=== PATIENT | male | born 1950 | race Caucasian/White ===

== ENCOUNTER 2016-11-03 13:17 | Inpatient (IN) | payer OTHER ==
--- NOTE | 2016-11-03 14:44 | Diag Imaging Result Document ---
PROCEDURE NAME: XRAY PELVIS W/HIP 2-3VW LT - 11/03/2016 PELVIS AND 2 VIEWS OF THE LEFT HIP: COMPARISON: None. FINDINGS: There is no fracture or dislocation. There is probably mild bilateral hip osteoarthritis. There is massive constipation, with distention of the cecum. There is peripheral vascular disease of the arteries of the thighs and pelvis. IMPRESSION: 1. No fracture. 2. Incidental findings described above.
--- NOTE | 2016-11-03 14:48 | Diag Imaging Result Document ---
PROCEDURE NAME: RIBS UNILAT W/PA CHEST RIGHT - 11/03/2016 FRONTAL CHEST X-RAY AND 3 VIEWS OF THE RIGHT-SIDED RIBS: COMPARISON: 09/25/2016. FINDINGS: Stable CABG changes. Stable calcified granulomas on the right. The lungs are clear of infiltrate. The right-sided ribs are intact. IMPRESSION: No acute disease.
--- NOTE | 2016-11-03 16:44 | ED EKG INTERP ---
EKG Interpretation - EKG Time of EKG reading by physician:: 16:30 EKG Read and Signed by:: Silvano Rae EKG Interpretation (*Must complete 3 of following elements*): Abnormal ( nonspecific ST and T wave Abnormality) Rate: 71 Rhythm: Normal Sinus Rhythm Comments: Abnormal ECG Physician Attestation
--- NOTE | 2016-11-03 16:57 | EKG Report ---
Test Performed on : 11/03/2016 4:30:50 PM Test Reason : Chest Pain Blood Pressure : / mmHG Vent. Rate : 071 BPM Atrial Rate : 071 BPM P-R Int : 184 ms QRS Dur : 102 ms QT Int : 414 ms P-R-T Axes : 096 083 033 degrees QTc Int : 449 ms Normal sinus rhythm. Nonspecific ST and T wave abnormality Abnormal ECG When compared with ECG of 26-SEP-2016 09:10, No significant change was found Unconfirmed Result
[2016-11-03] MEDS ORDERED: NS 1,000 ML ONE (17:09)
--- NOTE | 2016-11-03 17:13 | PROVIDER DOCUMENTATION ---
HPI-Musculoskeletal Pain/Inj - GENERAL Source: patient - HX OF PRESENT ILLNESS-MUSKULOSKELTAL Quality of Pain: reports: aching Severity in ED: mild Onset/Duration: last night Timing: still present, intermittent Modifying Factors: improves with: nothing Any recent injury?: Yes (fall ) Locality of Occurance: Home Similar Symptoms Previously?: No Recently seen or treated by another doctor?: No - FALL INJURY Location of Pain/Injury: reports: other (R side ribs) Reason for Fall: reports: tripped Symptoms prior to fall:: reports: none Loss of Consciousness: no loss of consciousness Injury Associated Symptoms: reports: pain with inspiration. denies: arm pain, back/neck pain, chest pain, diaphoresis, dizziness, headaches, joint pain, muscle aches, nausea, puncture wound, shortness of breath, sensory/motor loss, snap/crack/pop sensation, unable to bear weight, vomiting, weakness, trouble walking - TRUNK INJURY Location of Injury(s)/Pain: reports: ribs (R) Context / Method of Injury: reports: fall Associated Symptoms: reports: pain with breathing. denies: anxiety, arm pain, back/neck pain, chest pain, nausea/vomiting, shortness of breath, sensory/motor loss <Mariela Mar - Last Filed: 11/03/16 17:52> <Robinson Malone - Last Filed: 11/03/16 22:32> - GENERAL Chief Complaint: Fall Stated Complaint: SYNCOPE/RIB PAIN Time Seen by Provider: 11/03/16 17:05 - HX OF PRESENT ILLNESS-MUSKULOSKELTAL Nature of Presenting Problem: Pt is 66 y/o M presents to the ED with R rib pain. Pt states tripped and fell last night. Pt denies LOC. (Mariela Mar) Review of Systems - Adult - REVIEW OF SYSTEMS - ADULT Constitutional: denies: chills, fever Eyes: denies: blurred vision, double vision Ears, Nose, Mouth & Throat: denies: ear pain, nose pain, throat pain Cardiovascular: denies: chest pain, heart murmur, irregular heart rate Respiratory: denies: cough, shortness of breath, wheezing Gastrointestinal: denies: abdominal pain, diarrhea, nausea, vomiting Genitourinary: denies: dysuria, hematuria Musculoskeletal: reports: other (R side rib pain). denies: bone pain, joint pain, neck pain Integumentary: reports: no symptoms reported Neurological: reports: no symptoms reported Psychiatric: reports: no symptoms reported Endocrine: reports: no symptoms reported Hematologic/Lymphatic: reports: no symptoms reported Allergic/Immunologic: reports: no symptoms reported All Other Systems: Reviewed and Negative <Mariela Mar - Last Filed: 11/03/16 17:52> Past History - Adult - PAST MEDICAL HISTORY-ADULT Review of Records: reports: Nursing Assessment Review, Medications Reviewed, Social history reviewed & non-contributory. Major Childhood Illnesses: reports: denies history Cardiovascular: reports: cardiac disease, A-Fib, CAD, CHF, HTN, hyperlipidemia, other (stent) Respiratory: reports: COPD Gastrointestinal: reports: denies history Obstetrical/Gynecological: reports: denies history Genitourinary: reports: denies history Musculoskeletal: reports: denies history Neurological: reports: Parkinson's Endocrine/Immune: reports: Diabetes Other Conditions: reports: denies history - PRIOR SURGERIES/PROCEDURES Surgical/Procedure History: reports: CABG, cardiac stent - IMMUNIZATION STATUS Childhood Immunizations: See Nurse Assessment Flu Vaccine: See Nurse Assessment - FAMILY HISTORY Family History: reviewed, not pertinent - SOCIAL HISTORY Smoking: quit less than 1 year, cigarettes Substance Use: alcohol Alcohol Use Frequency: occasionally Number of drinks per typical drinking period:: 2 drinks Living Situation: family <Mariela Mar - Last Filed: 11/03/16 17:52> Physical Exam-Injury Related - Physical Exam-Injury Related Initial Vital Signs Reviewed: Yes General Appearance: appears well, alert, mild distress Eyes: PERRL/EOMI, pink conjunctivae, fundi clear, no AV nicking Head, Ears, Nose, Mouth & Throat: normocephalic/atraumatic, moist mucous membranes, normal ENT inspection, TMs normal, pharynx normal Neck: non-tender, full range of motion, supple, normal inspection Respiratory: chest non-tender, lungs clear, normal breath sounds, no pleuratic chest pain, no respiratory distress, no accessory muscle use Cardiovascular: normal peripheral pulses, regular rate, rhythm, no edema, no gallop, no JVD, no murmur Abdominal Exam: normal bowel sounds, non tender, soft, no organomegaly, no pulsatile mass Lymphatic: no adenopathy Back Exam: normal inspection, no CVA tenderness, no vertebral tenderness Extremity: normal range of motion, non-tender, normal gait, normal inspection Integumentary: normal color, warm/dry Neurologic: grossly normal Psych/Mental Status: normal mood/affect, oriented x 3 <Italia Maromi - Last Filed: 11/03/16 17:52> Progress - XRAY 1 XRAY: Bilateral XRAY Study: Chest, Ribs Impression: Normal XRAY Interpretation: no acute disease 2 XRAY: Left XRAY Study: Pelvis, Hip Impression: Normal XRAY Interpretation: no fracture <Saturnino Mari - Last Filed: 11/03/16 17:52> - EKG 1 Time of EKG reading by physician:: 19:43 EKG Read and Signed by:: Donaldo Juares Rate: 70 Mcgrath: right QRS: normal AL Interval: normal ST Wave: normal - CT/MRI 1 CT Study: Head Impression: Normal CT Results: NAP - CONSULTS/PCP/HOSPITALIST Notification #1 *Consult/PCP/Hospitalist*: Time Discussed: 20:29 Consult Disposition: Admit <Robinson Malone - Last Filed: 11/03/16 22:32> - PLAN OF CARE/RESULTS Progress/Plan/Lab Results: Orders Category Date Time Status Cardiac Monitoring DIRECTED Care 11/03/16 16:25 Active RIBS UNILAT W/PA CHEST RIGHT [RAD] Stat Exams 11/03/16 14:00 Completed XRAY PELVIS W/HIP 2-3VW LT [RAD] Stat Exams 11/03/16 14:01 Completed CBC WITH ELECTRONIC DIFF [HEME] Stat Lab 11/03/16 16:48 Results CK PROFILE [SP CHEM] Stat Lab 11/03/16 16:48 Received COMPREHENSIVE METABOLIC PANEL [CHEM] Stat Lab 11/03/16 16:48 Received MAGNESIUM [CHEM] Stat Lab 11/03/16 16:48 Received PRO B-NATRIURETIC PEPTIDE Stat Lab 11/03/16 16:[address] Re[address]IME WITH INR PL [COAG] Stat Lab 11/03/16 16:[address] [COAG] Stat Lab 11/03/16 16:48 Received TROPONIN T Stat Lab 11/03/16 16:48 Received 0.9% Sodium Chloride Inj [Ns] 1,000 ml Med 11/03/16 17:09 Discontinued .ROUTE As Directed EKG [EKG] Stat Ther 11/03/16 16:25 Draft Vital Signs - 24 hr 11/03/16 11/03/16 11/03/16 13:54 15:55 16:40 Temperature 98.2 F 98.6 F Pulse Rate 98 H 73 Pulse Rate [ 72 Sitting] Pulse Rate [ 75 Standing] Pulse Rate [ 70 Supine] Respiratory 18 16 Rate Blood Pressure 129/53 106/57 Blood Pressure 127/73 [Sitting] Blood Pressure 94/45 [Standing] Blood Pressure 149/71 [Supine] O2 Sat by Pulse 97 94 L Oximetry Laboratory Tests 11/03/16 11/03/16 11/03/16 16:48 16:48 16:48 WBC 8.54 RBC 4.09 L Hgb 9.8 L Hct 33.0 L MCV 80.7 L MCH 24.0 L MCHC 29.7 L RDW Std Deviation 17.6 H Plt Count 134 MPV 13.0 H Immature Gran % (Auto) 0.1 Neut % (Auto) 69.6 Lymph % (Auto) 15.2 L Emanuel % (Auto) 9.0 Eos % (Auto) 5.4 Baso % (Auto) 0.7 Immature Gran # (Auto) 0.01 Neut # (Auto) 5.94 Lymph # (Auto) 1.30 Emanuel # (Auto) 0.77 H Eos # (Auto) 0.46 Baso # (Auto) 0.06 PT INR APTT (Factor Assay) Sodium 135 L Potassium 4.1 Chloride 101 Carbon Dioxide 22 L Anion Gap 12 BUN 19 Creatinine 1.6 H Estimated GFR/1.73 m2 44 BUN/Creatinine Ratio 12 Glucose 105 H Calculated Osmolality 273 Calcium 9.2 Magnesium 1.7 Total Bilirubin 0.30 AST 18 ALT 6 L Alkaline Phosphatase 71 Creatine Kinase 212 H Troponin T Kxk-C-Ksmgboliojy Pept 687 H Total Protein 7.1 Albumin 4.1 Globulin 3.0 Albumin/Globulin Ratio 1.0 11/03/16 11/03/16 16:48 16:48 WBC RBC Hgb Hct MCV MCH MCHC RDW Std Deviation Plt Count MPV Immature Gran % (Auto) Neut % (Auto) Lymph % (Auto) Emanuel % (Auto) Eos % (Auto) Baso % (Auto) Immature Gran # (Auto) Neut # (Auto) Lymph # (Auto) Emanuel # (Auto) Eos # (Auto) Baso # (Auto) PT 14.7 INR 1.12 APTT (Factor Assay) 33.5 Sodium Potassium Chloride Carbon Dioxide Anion Gap BUN Creatinine Estimated GFR/1.73 m2 BUN/Creatinine Ratio Glucose Calculated Osmolality Calcium Magnesium Total Bilirubin AST ALT Alkaline Phosphatase Creatine Kinase Troponin T < 0.010 Gxa-A-Nghllhnkfgl Pept Total Protein Albumin Globulin Albumin/Globulin Ratio (Mariela Mar) Departure <Mariela Mar - Last Filed: 11/03/16 17:52> - Departure Time of Disposition Order: 22:32 Certified Medical Emergency: Emergent <Robinson Malone - Last Filed: 11/03/16 22:32> - Departure DIAGNOSIS: Syncope and collapse Disposition: ADMITTED INPATIENT 09 Condition: Good Referrals: Evelio Sharma MD [Primary Care Provider] - Attestation - Scribe Verification/Attestation Scribe:: Mariela Mar Acting as Scribe for:: Silvano Rae Scribe documention review:: This chart was documented by a scribe and accurately reflects the service the provider performed and the decisions made by the provider. - Scribe Verification/Attestation #2 Shift Change Time: 17:52 Scribe Name: Robinson Malone Acting as Scribe for:: Donaldo Juares <Mariela Mar - Last Filed: 11/03/16 17:52> - Scribe Verification/Attestation Scribe:: Robinson Malone Acting as Scribe for:: Donaldo Juares Scribe documention review:: This chart was documented by a scribe and accurately reflects the service the provider performed and the decisions made by the provider. <Robinson Malone - Last Filed: 11/03/16 22:32> Physician Attestation
[2016-11-03 17:15] LABS: INR 1.12 (0.86-1.15); PROTIME 14.7 Seconds (12.1-15.5); PTT PL 33.5 Seconds (22.6-43.9)
[2016-11-03 17:18] LABS: BASO% 0.7 % (0.0-0.8); EOS# 0.46 X1000 (0.0-0.7); EOS% 5.4 % (0.0-10.0); HEMOGLOBIN 9.8 g/dL (14.0-18.0); IMM GRAN# 0.01 X1000 (0.0-0.04); IMM GRAN% 0.1 % (0.0-0.5); LYMPH% 15.2 % (20.5-51.1); MANUAL DIFF NEEDED? NO; MCHC 29.7 g/dL (33-37); MCV 80.7 FL (81-99); MONO# 0.77 X1000 (0.11-0.59); NEUT% 69.6 % (42.2-75.2); PLT 134 X1000 (130-400); RBC 4.09 XMIL (4.7-6.1)
[2016-11-03 17:42] LABS: ALBUMIN 4.1 g/dL (3.5-5.0); CALCIUM 9.2 mg/dL (8.8-10.2); MAGNESIUM 1.7 mg/dL (1.5-2.7); POTASSIUM 4.1 mmol/L (3.5-5.1); TOTAL BILIRUBIN 0.3 mg/dL (0.20-1.00); TOTAL PROTEIN 7.1 g/dL (6.3-8.3)
[2016-11-03 18:08] LABS: CK-MB 4.26 ng/mL (0.0-5.0)
--- NOTE | 2016-11-03 19:53 | EKG Report ---
Test Performed on : 11/03/2016 7:32:16 PM Test Reason : ekg #2 Blood Pressure : / mmHG Vent. Rate : 070 BPM Atrial Rate : 070 BPM P-R Int : 168 ms QRS Dur : 094 ms QT Int : 442 ms P-R-T Axes : 000 090 104 degrees QTc Int : 477 ms Normal sinus rhythm. Rightward axis Nonspecific ST and T wave abnormality Abnormal ECG When compared with ECG of 03-NOV-2016 16:30, (Unconfirmed) No significant change was found Unconfirmed Result
--- NOTE | 2016-11-03 21:47 | Diag Imaging Result Document ---
PROCEDURE NAME: HEAD/C-SPINE W/O CONTRAST - 11/03/2016 CT HEAD AND C-SPINE WITHOUT CONTRAST: COMPARISON: CT head dated 09/27/2016. FINDINGS: HEAD: There is no discrete intracranial mass, mass effect, or intracranial hemorrhage. There is no evidence of acute infarct given the limited sensitivity of CT versus MRI. Surrounding soft tissues are grossly unremarkable. Calvaria is intact. C-SPINE: There is degenerative disk disease at multiple cervical levels. 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 This is causing fairly severe central spinal stenosis at these levels. There is somewhat milder central stenosis and foraminal stenosis at multiple other levels. This appears chronic. There is no discrete fracture, traumatic subluxation, or intrinsic osseous lesion, otherwise. There are emphysematous changes at the lung apices and right apical scarring. Surrounding soft tissues are essentially unremarkable, otherwise. IMPRESSION: 1. No evidence of acute intracranial pathology. 2. Multilevel degenerative disk disease as well as ossification of the posterior longitudinal ligament at C4 and C5 that is causing fairly severe central stenosis. No evidence of fracture or other definite acute osseous abnormality, however.
[2016-11-03] MEDS ORDERED: ZOFRAN IV PRN (22:29)
[2016-11-03] MEDS ORDERED: MORPHINE IV PRN (22:36)
[2016-11-04] MEDS ORDERED: NS 1,000 ML IV SCH (11:00)
[2016-11-04] MEDS ORDERED: DUONEB (A & A) INH PRN (11:46)
[2016-11-04] MEDS ORDERED: COLACE PO SCH (12:00)
[2016-11-04] MEDS ORDERED: PROSCAR PO SCH (12:00)
[2016-11-04] MEDS ORDERED: ASPIRIN PO SCH (12:00)
[2016-11-04] MEDS ORDERED: CYMBALTA PO SCH (12:00)
[2016-11-04] MEDS ORDERED: SPIRIVA INH SCH (12:00)
[2016-11-04] MEDS ORDERED: EXELON 4.6MG/24HRS TD SCH (12:00)
[2016-11-04] MEDS ORDERED: CORDARONE PO SCH (12:00)
[2016-11-04] MEDS ORDERED: FOLIC ACID PO SCH (12:00)
[2016-11-04] MEDS ORDERED: ZYLOPRIM PO SCH (12:00)
--- NOTE | 2016-11-04 15:39 | HISTORY AND PHYSICAL ---
PRIMARY CARE PHYSICIAN: Dr. Evelio Sharma CHIEF COMPLAINT: "I fell and my right side hurts. HISTORY OF PRESENTING ILLNESS: This is a 66-year-old male who presented to [facility] ER with complaints of right rib pain stating that he had tripped and fallen on the night before. States that he hit his right side and that he lost consciousness "out of it for about a minute" then the pain progressively worsened so he presented to the ER. Workup in the ER was essentially negative. His cardiac enzymes x3 sets have been negative. Rib with chest x-ray showed no acute disease. The right-sided ribs were intact. Hip and pelvic, x-ray of the left hip showed no fracture. Head CT showed no evidence of an acute intracranial pathology. CT of the spine showed no evidence of fracture. So, he was admitted for further evaluation and treatment. PAST MEDICAL HISTORY: Hypertension, diabetes, atrial fibrillation, coronary artery disease, CHF, hyperlipidemia, COPD, and Parkinson disease. PAST SURGICAL HISTORY: CABG and cardiac stent placement. FAMILY HISTORY: States his mother and father from heart problems. SOCIAL HISTORY: He currently is living with his girl friend. Denies any tobacco or illicit drug use and states he drinks 1-2 beers every 2-3 months. ALLERGIES: Oseltamivir phosphate. HOME MEDICATIONS: DuoNeb q.6 hours p.r.n., allopurinol 100 mg p.o. daily, amiodarone 100 mg p.o. daily, aspirin 325 mg p.o. daily. Cyanocobalamin 1000 mcg IM q.30 days will be held. Depakote ER 500 mg p.o. at bedtime, Colace 100 mg p.o. b.i.d. Cymbalta 30 mg p.o. q.a.m., vitamin D 250 1000 units p.o. q.7 days, will be held. Proscar 5 mg p.o. daily, folic acid 2 mg p.o. daily, lisinopril 20 mg p.o. daily will be held, melatonin 5 mg p.o. at bedtime, metformin 500 mg p.o. b.i.d. will be held, Seroquel 100 mg p.o. at bedtime. Exelon patch 4.6 mg transdermally daily, Zocor 40 mg p.o. at bedtime and Spiriva 2 puffs inhalation daily. LABORATORY DATA: White blood cell count of 8.54, hemoglobin of 9.8, hematocrit 33.0, platelets 134,000. PT and INR 14.7 and 1.12. Sodium of 135, potassium 4.1, chloride 101, CO2 22, BUN of 19, creatinine 1.6. Glucose 105. Magnesium 1.7. Creatine kinase of 212 with a CK-MB of 4.26. Troponins x3 sets have been negative. ProBNP of 687. IMAGING STUDIES: Ribs with a chest x-ray shows no acute disease. All right-sided ribs are intact. Hip/pelvis x-ray showed no fracture. Incidental findings described above with no fracture or dislocation and some mild bilateral hip osteoarthritis. There is noted in the hip and pelvic x-ray, there is massive constipation with distention of the cecum. Head CT showed no evidence of an acute intracranial pathology. CT of the C-spine shows multilevel degenerative disk disease. No evidence of fracture or definite acute osseous abnormality. EKG showed normal sinus rhythm at 71. REVIEW OF SYSTEMS: He denied any fever, chills, blurred vision, dizziness, chest pain, coughing, or shortness of breath. He denies any nausea, vomiting, or diarrhea. Positive for constipation. Denies any burning or hurting with urination. PHYSICAL EXAMINATION: VITAL SIGNS: On arrival, showed a temperature of 98.2 degrees, pulse 98, respirations 18, blood pressure 129/53, saturating 97% on room air. This a.m., we checked orthostatic blood pressures that showed a lying of 155/61 with a heart rate of 70, sitting 112/72 with a heart rate of 73. Standing blood pressure 103/50 with a heart rate of 77. GENERAL: This is a 66-year-old male who is lying in the bed, and answers questions appropriately. HEENT: Normocephalic and atraumatic. Pupils are equal, round, reactive to light. Extraocular movements are intact. Oropharynx and nares are clear. NECK: Supple. LUNGS: Diminished throughout, some splinting noted to the right side with movement. Equal lung expansion and chest wall movement is noted. HEART: Regular rate and rhythm. No murmurs, rubs, or gallops. ABDOMEN: Soft, nontender, nondistended. Bowel sounds are hypoactive x4. NEUROLOGICAL: The cranial nerves 2-12 are grossly intact. ASSESSMENT: 1. Syncopal episode. 2. Orthostatic hypotension. 3. Diabetes type 2. 4. Atrial fibrillation, history of. PLAN: He has been admitted. Neuro checks q.4 hours for 24 hours. Placed on telemetry. We will check a carotid ultrasound and an echocardiogram today. We will place him on normal saline at 125 mL an hour. Continue his home medications as previously identified. He has morphine 2 mg IV q.4 hours p.r.n. for pain and Zofran 4 mg IV q.4 hours p.r.n. nausea vomiting. We will recheck orthostatics after infusion of at least 1 L of his normal saline at 125 mL an hour. Dictated by LILLI Yeh for Artemio Cedillo MD
[2016-11-04 15:49] VITALS: BP 187/89
[2016-11-04] MEDS ORDERED: MELATONIN PO SCH (21:00)
[2016-11-04] MEDS ORDERED: DEPAKOTE ER PO SCH (21:00)
[2016-11-04] MEDS ORDERED: ZOCOR PO SCH (21:00)
[2016-11-04] MEDS ORDERED: SEROQUEL PO SCH (21:00)
--- NOTE | 2016-11-05 16:40 | ECHO REPORT ---
ORDER DATE: 11/04/2016 ECHOCARDIOGRAPHIC MEASUREMENTS: 1. Interventricular septum 1.2. 2. Left ventricular posterior wall 1.3. 3. Diastolic diameter 5.2. 4. Left atrium 3.9. 5. Aorta 3.9. SUMMARY OF 2-DIMENSIONAL IMAGIN. Aortic valve leaflets were sclerosed, trileaflet opening normally. 2. Pulmonic valve was normal. 3. Normal left ventricular cavity size. Mild left ventricular hypertrophy. Concentric left ventricular ejection fraction, estimated ejection fraction of 55%. There is inferior wall hypokinesis. 4. Mitral valve was normal. Tricuspid valve was normal. There is mild mitral regurgitation. 5. Peak velocity across the aortic valve less than 2 m/sec. There is no aortic stenosis. There is aortic sclerosis associated with trace aortic regurgitation. There is mild tricuspid regurgitation. Peak velocity across the tricuspid valve was 2.7 m/sec. Pulmonary artery systolic pressure of 39 mmHg. 6. There is no pericardial effusion. There is or obvious intracardiac mass or thrombus seen.
--- NOTE | 2016-11-06 06:40 | DISCHARGE SUMMARY ---
ADMISSION DATE: 11/03/2016 DISCHARGE DATE: 11/04/2016 DISCHARGE DIAGNOSES: 1. Syncope, improved. Patient has a known history of Parkinson's for which it causes his syncope. 2. Orthostatic hypotension, again secondary to his known history of Parkinson's. 3. Parkinson's. 4. Diabetes type 2. 5. Atrial fibrillation. CONSULTATIONS: None. PROCEDURES: None. BRIEF HOSPITAL COURSE: Patient is a 66-year-old male who was admitted as noted on the HPI. Treated in the usual fashion. He was watched overnight. He was able to ambulate with a walker, back to his usual state without any difficulty. DISPOSITION: Patient will be discharged home. He will follow up with his primary care in 1-2 weeks. No other orders were changed.
--- NOTE | 2016-11-06 15:10 | Extremity Venous Study ---
PROCEDURE NAME: Carotid Ultrasound - 11/04/2016 CAROTID DOPPLER: COMPARISON: 06/23/2016. FINDINGS: Right: There is moderate atherosclerotic plaque with calcification at the carotid bulb and proximal ICA on grayscale images. The peak systolic velocity measures 347, 97, 107, 143, 129, 118, and 161 cm/sec at the right subclavian artery, CCA, bifurcation, proximal ICA, mid ICA, distal ICA, and ECA, respectively. There is antegrade flow in the vertebral artery. The carotid ratio is 1.47. Left: There is moderate atherosclerotic plaque with calcification involving the carotid bulb and proximal ICA. The peak systolic velocity measures 316, 144, 135, 191, 154, 118, and 224 cm/sec at the left subclavian artery, CCA, bifurcation, proximal ICA, mid ICA, distal ICA, and ECA, respectively. There is antegrade flow in the vertebral artery. The carotid ratio is 1.33. IMPRESSION: Moderate atherosclerotic disease at the carotid bulbs and proximal ICAs bilaterally on grayscale imaging with peak systolic velocities suggesting a 40-59% stenosis on the right and a 60-79% stenosis on the left.
== END 2016-11-04 18:50 | disposition home or self-care (01) | DRG 57 ==
LOC: P.ED 13:17 → P.MEDSURG 22:34
PROVIDERS: ATTEND Internal Medicine
DX: G20 Parkinson's disease (principal); I11.0 Hypertensive heart disease with heart failure; I50.9 Heart failure, unspecified; I48.91 Unspecified atrial fibrillation; J44.9 Chronic obstructive pulmonary disease, unspecified; E78.5 Hyperlipidemia, unspecified; E11.9 Type 2 diabetes mellitus without complications; I95.1 Orthostatic hypotension; R07.81 Pleurodynia; I25.10 Atherosclerotic heart disease of native coronary artery without angina pectoris; W01.0XXA Fall on same level from slipping, tripping and stumbling without subsequent striking against object, initial encounter; Z95.5 Presence of coronary angioplasty implant and graft; Z95.1 Presence of aortocoronary bypass graft; Z87.891 Personal history of nicotine dependence; Z79.899 Other long term (current) drug therapy
CPT/HCPCS: 70450; 71101; 72125; 80053; 82550; 82553; 82948; 83735; 83880; 84484; 85025; 85610; 85730; 93005; 93306; 93880; 94761; J2270; J7030; S0138; 94640-76

== ENCOUNTER 2018-12-27 14:57 | Inpatient (IN) ==
[2018-12-27 15:31] LABS: BASO# 0.04 X1000 (0.0-0.2); BASO% 0.2 % (0.0-0.8); EOS# 0.05 X1000 (0.0-0.7); EOS% 0.3 % (0.0-10.0); HEMATOCRIT 41.2 % (42.0-52.0); HEMOGLOBIN 13.3 g/dL (14.0-18.0); IMM GRAN# 0.07 X1000 (0.0-0.04); IMM GRAN% 0.4 % (0.0-0.5); LYMPH# 1.28 X1000 (1.2-3.4); LYMPH% 6.7 % (20.5-51.1); MCH 27.9 PG (27-31); MCHC 32.3 g/dL (33-37); MCV 86.6 FL (81-99); MONO# 1.51 X1000 (0.11-0.59); MONO% 7.9 % (1.7-9.3); MPV 12.1 FL (7.4-10.4); NEUT# 16.09 X1000 (1.4-6.5); NEUT% 84.5 % (42.2-75.2); PLT 158 X1000 (130-400); RBC 4.76 XMIL (4.7-6.1); WBC 19.04 X1000 (4.8-10.8)
[2018-12-27] MEDS ORDERED: NS 1,000 ML IV ONE (15:35)
[2018-12-27] MEDS ORDERED: DUONEB (A & A) INH ONE (15:35)
[2018-12-27] MEDS ORDERED: SOLU-MEDROL IV ONE (15:36)
[2018-12-27] MEDS ORDERED: TORADOL IV ONE (15:36)
[2018-12-27] MEDS ORDERED: LEVAQUIN 750 MG/D5W 750 MG/150 ML IVPB IV ONE (15:36)
[2018-12-27 15:37] LABS: INR 1.11; PROTIME 15.2 Seconds (11.0-16.0)
[2018-12-27 15:38] LABS: PTT 35.9 Seconds (22.3-41.8)
[2018-12-27 15:57] LABS: ALB/GLOB RATIO 1.4; ALBUMIN 4.4 g/dL (3.5-5.0); CALCIUM 9.3 mg/dL (8.8-10.2); CREATININE 1.4 mg/dL (0.7-1.2); POTASSIUM 4.6 mmol/L (3.5-5.1); TOTAL BILIRUBIN 1.15 mg/dL (0.20-1.00); TOTAL PROTEIN 7.6 g/dL (6.3-8.3)
--- NOTE | 2018-12-27 16:06 | Diag Imaging Result Doc PS360 ---
EXAM: CHEST-1 VIEW - 12/27/2018 HISTORY: diff breathing/poss pna TECHNIQUE: Portable chest COMPARISON: 09/24/2017 FINDINGS: Heart size is normal. There are sternal wires from previous surgery again seen. There are COPD/emphysematous changes. There is interstitial scarring at the lung bases. There are stable right upper lobe granuloma from old granulomatous disease. There is ill-defined infiltrate at the right midlung. There are small infiltrate at the left midlung. There is no pleural effusion or pneumothorax identified. IMPRESSION: COPD/emphysematous changes. Basilar interstitial scarring. Infiltrates at bilateral mid lungs, most prominent on the right, suspicious for pneumonia. Electronically signed by Evelio Forbes 12/27/2018 4:03 PM
[2018-12-27] MEDS ORDERED: CARDIZEM IV ONE (16:47)
[2018-12-27] MEDS ORDERED: LOVENOX 1 MG/KG SUBQ ONE (16:47)
--- NOTE | 2018-12-27 16:51 | PROVIDER DOCUMENTATION ---
This chart was entered by Adriana Cervantes Scribe, acting as scribe for Ovi Nick MD. HPI-General Adult - General Chief Complaint: Shortness of Breath Stated Complaint: CHF,COUGHING X 3DAYS,FEVER,STAGE 4 COPD Time Seen by Provider: 12/27/18 15:28 Source: patient Allergies/Adverse Reactions: Patient Allergies Allergy/AdvReac Type Severity Reaction Status Date / Time oseltamivir phosphate * AdvReac DIZZINESS Verified 12/27/18 15:55 [From Tamiflu] Home Medications: Home Medication List Medication Instructions Recorded Confirmed Last Taken Type Alfuzosin HCl [Alfuzosin HCl ER] 10 mg PO QHS 09/12/17 11/25/17 11/24/17 21:00 History Aspirin 81 mg PO DAILY 09/12/17 12/27/18 11/24/17 09:00 History Atorvastatin Calcium 40 mg PO HS 09/12/17 12/27/18 11/24/17 20:30 History Duloxetine HCl [Cymbalta] 30 mg PO QAM 09/12/17 12/27/18 11/24/17 09:00 History Ferrous Sulfate 325 mg PO TID 09/12/17 11/25/17 11/24/17 09:00 History Fluticasone Propionate 1 spray FAMILIA DAILY 09/12/17 12/27/18 11/24/17 09:00 History Ipratropium/Albuterol Sulfate 2 puff INH PRN PRN 09/12/17 12/27/18 Unknown History [Combivent Respimat 20-100 Mcg] Metformin HCl 500 mg PO DAILY 09/12/17 12/27/18 11/24/17 09:00 History Quetiapine Fumarate [Seroquel] 50 mg PO QHS 09/12/17 12/27/18 11/24/17 20:30 History Tiotropium [place] [Spiriva 2 puff INH DAILY 09/12/17 12/27/18 11/24/17 09:00 History Respimat] Venlafaxine HCl [Venlafaxine HCl 37.5 mg PO DAILY 09/12/17 11/25/17 11/24/17 09:00 History ER] Cephalexin [Keflex] 500 mg PO BID #14 cap 11/25/17 12/27/18 Unknown Rx - History of Present Illness -Gen Adult Nature of Presenting Problems: 68 yom c/o cough w/min white sputum, fever around 101 this am, sob, congestion and sore throat. pt has hx of copd and chf. pt not taking antibitotics, no know sick contacts and no hx of pneumonia. pt o2 in place. Review of Systems - Adult - REVIEW OF SYSTEMS - ADULT Constitutional: reports: see HPI, fever (100.7 in er). denies: chills, fatique, night sweats Eyes: reports: no symptoms reported. denies: dry eyes, eye pain, redness Ears, Nose, Mouth & Throat: reports: see HPI, sinus problem (congestion), throat pain. denies: ear discharge, ear pain, epistaxis, hoarseness Cardiovascular: reports: no symptoms reported Respiratory: reports: see HPI, cough (min white phlegm), shortness of breath. denies: dyspnea on exertion, hemoptysis, pleurisy Gastrointestinal: reports: no symptoms reported. denies: abdominal pain, difficulty swallowing, frequent heartburn, nausea Genitourinary: reports: no symptoms reported Musculoskeletal: reports: no symptoms reported Integumentary: reports: no symptoms reported Neurological: reports: no symptoms reported Psychiatric: reports: no symptoms reported Endocrine: reports: no symptoms reported Hematologic/Lymphatic: reports: no symptoms reported Allergic/Immunologic: reports: no symptoms reported All Other Systems: Reviewed and Negative Past History - Adult - PAST MEDICAL HISTORY-ADULT Review of Records: reports: Old Records Reviewed, Nursing Assessment Review, Medications Reviewed, Social history reviewed & non-contributory. Major Childhood Illnesses: reports: denies history Cardiovascular: reports: cardiac disease, A-Fib, CAD, CHF, HTN, hyperlipidemia, other (stent) Respiratory: reports: COPD Gastrointestinal: reports: denies history Obstetrical/Gynecological: reports: denies history Genitourinary: reports: denies history Musculoskeletal: reports: denies history Neurological: reports: Parkinson's Psychiatric: reports: depression Endocrine/Immune: reports: Diabetes Other Conditions: reports: denies history - PRIOR SURGERIES/PROCEDURES Surgical/Procedure History: reports: CABG, cardiac stent - IMMUNIZATION STATUS Childhood Immunizations: See Nurse Assessment Flu Vaccine: See Nurse Assessment - FAMILY HISTORY Family History: reviewed, not pertinent - SOCIAL HISTORY Smoking: cigarettes, other (former) Substance Use: none/never Physical Exam-General - PHYSICAL EXAM-ADULT Initial Vital Signs Reviewed: Yes - CONSTITUTIONAL General Appearance: appears well, alert, no apparent distress - EYES Eyes: PERRL/EOMI, pink conjunctivae - HEAD, EARS, NOSE, MOUTH & THROAT HENMT: normocephalic/atraumatic, moist mucous membranes, normal ENT inspection - NECK Neck: non-tender, full range of motion, supple, normal inspection - RESPIRATORY Respiratory: chest non-tender, no pleuratic chest pain, no respiratory distress, no accessory muscle use, rhonchi (bilat), wheezing (exploratory). negative: lungs clear, normal breath sounds - CARDIOVASCULAR Cardiovascular: normal peripheral pulses, no edema, no gallop, no JVD, no murmur , tachycardia (atopic beats), other (tachypnic but stable). negative: regular rate, rhythm, JVD, bradycardia, irregularly irregular, PMI displaced laterally - GASTROINTESTINAL (ABDOMEN) Abdominal Exam: normal bowel sounds, non tender, soft - LYMPHATIC Lymphatic: no adenopathy - MUSCULOSKELETAL Back Exam: normal inspection, no CVA tenderness, no vertebral tenderness Extremity: normal range of motion, non-tender, normal inspection Peripheral Pulses: radial (R): 2+, radial (L): 2+ - SKIN Integumentary: normal color, normal turgor, warm/dry - NEUROLOGIC Neurologic: grossly normal, no motor/sensory deficits - PSYCHIATRIC Psych/Mental Status: normal mood/affect, normal thought content, normal thought process, oriented x 3 Progress - PLAN OF CARE/RESULTS Progress/Plan/Lab Results: Vital Signs - 8 hr 12/27/18 15:00 Temperature 100.7 F H Pulse Rate 136 H Respiratory Rate 30 H Blood Pressure 117/71 O2 Sat by Pulse Oximetry 96 Laboratory Results - last 24 hr 12/27/18 15:11 WBC 19.04 H RBC 4.76 Hgb 13.3 L Hct 41.2 L MCV 86.6 MCH 27.9 MCHC 32.3 L RDW Std Deviation 14.0 Plt Count 158 MPV 12.1 H Immature Gran % (Auto) 0.4 Neut % (Auto) 84.5 H Lymph % (Auto) 6.7 L Floyd % (Auto) 7.9 Eos % (Auto) 0.3 Baso % (Auto) 0.2 Immature Gran # (Auto) 0.07 H Neut # (Auto) 16.09 H Lymph # (Auto) 1.28 Floyd # (Auto) 1.51 H Eos # (Auto) 0.05 Baso # (Auto) 0.04 Orders Category Date Time Status Cardiac Monitoring DIRECTED Care 12/27/18 15:05 Active IV Insertion ORDERED Care 12/27/18 15:05 Active Notify MD of + Sepsis Screen NOW Care 12/27/18 15:05 Active Notify Physician As Ordered Care 12/27/18 15:05 Active CHEST-1 VIEW [RAD] Stat Exams 12/27/18 15:05 Ordered BLOOD CULTURE [BLDCUL] Stat Lab 12/27/18 15:11 Ordered CBC WITH DIFF [HEME] Stat Lab 12/27/18 15:11 Completed CK PROFILE [SP CHEM] Stat Lab 12/27/18 15:11 Received COMPREHENSIVE METABOLIC PANEL [CHEM] Stat Lab 12/27/18 15:11 Received LACTATE, PLASMA [CHEM] Lab 12/27/18 15:11 Received LACTATE, PLASMA [CHEM] Lab 12/27/18 18:15 Uncollected LACTATE, PLASMA [CHEM] Lab 12/27/18 21:15 Uncollected PROTIME WITH INR [COAG] Stat Lab 12/27/18 15:11 Received PTT [COAG] Stat Lab 12/27/18 15:11 Received TROPONIN T Stat Lab 12/27/18 15:11 Received URINALYSIS W/POSS RFLX CULT [URINALYSIS] Stat Lab 12/27/18 15:05 Uncollected Oxygen Device Stat Oth 12/27/18 15:05 Active Result Diagrams: 12/27/18 15:11 12/27/18 15:11 - REASSESSMENT Reassessment #1 Time Reassessed: 16:45 Status: improving (Better after nebs, meds, steroids. Given Levaquin. Patient has sepsis, but not severe as lactate is negative. Does not require 30ml/kg bolus as not hypotensive and lactate was less than 4. Given lovenox and cardizem for A-Flutter) - EKG 1 Time of EKG reading by physician:: 15:37 EKG Read and Signed by:: Ovi Nick EKG Interpretation (*Must complete 3 of following elements*): Abnormal Rate: 116 Rhythm: a-flutter w/variable av block [place]: normal ST Wave: non-specific ST changes (nonspecific st and t wave abnormality) - XRAY 1 XRAY Study: Chest Impression: Abnormal, See EMR Report ( Signed EXAM: CHEST-1 VIEW - 12/27/2018 HISTORY: diff breathing/poss pna TECHNIQUE: Portable chest COMPARISON: 09/24/2017 FINDINGS: Heart size is normal. There are sternal wires from previous surgery again seen. There are COPD/emphysematous changes. There is interstitial scarring at the lung bases. There are stable right upper lobe granuloma from old granulomatous disease. There is ill-defined infiltrate at the right midlung. There are small infiltrate at the left midlung. There is no pleural effusion or pneumothorax identified. IMPRESSION: COPD/emphysematous changes. Basilar interstitial scarring. Infiltrates at bilateral mid lungs, most prominent on the right, suspicious for pneumonia. Electronically signed by Evelio Forbes 12/27/2018 4:03 PM 12/27/18 1603 Interpreting Physician: Evelio Forbes MD Dictated Date/Time: 12/27/18 1601 cc: Ovi Nick MD; Evelio Sharma MD) Departure - Departure Date of Disposition Decision: 12/27/18 Time of Disposition Decision: 16:50 DIAGNOSIS: Sepsis due to pneumonia, COPD with exacerbation, New onset atrial flutter Disposition: ADMITTED INPATIENT 09 Certified Medical Emergency: Emergent Condition: Fair Referrals and Follow-Ups: Evelio Sharma MD [Primary Care Provider] - - Critical Care Note This patient required my direct & personal management of CC.: Yes Total Time (mins): 40 Critical Care Statement: This patient required my direct personal management to treat or rule out processes, the absence of which, could potentiallly result in sudden, clinically significant life or limb threatening deterioration. Attestation - Physician/ PRANEETH Attestation Patient care was provided by Advanced Practice Provider:: No The physician spent face to face time with patient:: Yes Advanced Practice Provider documentation review:: Supervising physician onsite and consulted in the evaluation and care of this patient. The physician did have a face to face encounter with the patient. This chart was documented by the indicated scribe, (Adriana Cervantes, Noah) and accurately reflects the services I performed and decisions made by , Ovi Nick MD, as attested by the provider's signature.
[2018-12-27] MEDS ORDERED: LOVENOX SUBQ ONE (17:00)
[2018-12-27 17:06] LABS: ALLEN TEST YES; BLOOD TYPE ARTERIAL; HCO3-(ACT) 24.9 mmoll (20.0-26.0); METHB 1.4 % (0.0-1.5); O2(CT) 15.8 mL/dL (15.0-23.0); O2HB 95.9 % (95.0-99.0); PCO2(98.6) 34 mmHg (35-45); PO2(98.6) 105 mmHg (60-100); SAMPLE BLOOD; SAO2 99.5 % (95.0-100.0); THB 11.6 g/dL (11.5-17.4); pH(98.6) 7.45 (7.35-7.45)
[2018-12-27 17:07] LABS: MODALITY CANNULA
[2018-12-27] MEDS ORDERED: TYLENOL PO PRN (18:13)
--- NOTE | 2018-12-27 18:42 | HISTORY AND PHYSICAL ---
PRIMARY CARE PHYSICIAN: Evelio Sharma MD CHIEF COMPLAINT: Subjective fever, cough, shortness of breath despite using his home O2. HISTORY OF PRESENTING ILLNESS: This is a 68-year-old, male who presents to [facility] ER with complaints of a subjective fever, cough and shortness of breath. He used his home O2, but it did not improve any of his symptoms. His workup in the ER showed a temperature of a 100.7 degrees, pulse was 136. We did an EKG that was read as atrial flutter with a variable AV block at 116, but he has a history of atrial fibrillation. Respirations were 30. Laboratory data showed a white blood cell count of 19.04. His chest x-ray showed infiltrates at bilateral mid lungs, most prominent on the right, suspicious for pneumonia and COPD, emphysematous changes. So, he is being admitted to the medical unit for further evaluation and treatment. PAST MEDICAL HISTORY: Atrial fibrillation, congestive heart failure, COPD, coronary artery disease, SD, Parkinson's, hyperlipidemia, hypertension and diabetes type 2. PAST SURGICAL HISTORY: Heart stent placement and CABG. FAMILY HISTORY: Reviewed and noncontributory. SOCIAL HISTORY: Currently lives with family, is a former smoker but no tobacco, alcohol or illicit drug use. ALLERGIES: Oseltamivir. HOME MEDICATIONS: Current list will need to be obtained, reconciled, reviewed and restarted as appropriate. Placed an order for nursing to update and confirm home medications. LABORATORY DATA: Showed a white blood cell count of 19.04, hemoglobin of 13.3, hematocrit 41.2, platelets 158,000, PT and INR of 15.2 and 1.11. ABG with a pH of 7.45, pCO2 of 34, pO2 105, bicarb 24.9 on 3 L via nasal cannula. Sodium 137, potassium 4.6, chloride 98, CO2 26, BUN of 20, creatinine 1.4, which is around his baseline. Glucose 148. Cardiac enzyme was negative, plasma lactate 1.8. Chest x-ray showed COPD, emphysematous changes, infiltrates at bilateral mid lungs, most prominent on the right, suspicious for a pneumonia. EKG showed atrial flutter at 116. REVIEW OF SYSTEMS: He was positive for subjective fever, cough, shortness of breath despite the use of his home O2. Denied any abdominal pain, constipation, diarrhea, burning or hurting with urination. PHYSICAL EXAMINATION: VITAL SIGNS: On arrival, he had a temperature of a 100.7 degrees, a pulse of 136, respirations 30, blood pressure 117/71, was saturating 96% on 3 L. Currently, heart rate is down to 114, respirations down to 21. GENERAL: This is a 68-year-old, male who is sitting up in the bed and answers questions appropriately. HEENT: Normocephalic, atraumatic. Normal ENT inspection. Oropharynx and nares are clear. EYES: Pupils are equal, round, reactive to light and accommodation. Extraocular movements are intact. NECK: Normal inspection. Normal range of motion. LUNGS: With scattered rhonchi and wheezing and decreased breath sounds to lower lobes. O2 via nasal cannula currently in use. HEART: Irregular rate and rhythm, but no murmurs, rubs, or gallops. ABDOMEN: Soft, nontender, nondistended. Bowel sounds are present x4 quadrants. MUSCULOSKELETAL: He has 5/5 strength x4 extremities. NEUROLOGICAL: The cranial nerves 2 through 12 appear grossly intact. ASSESSMENT: 1. Bilateral pneumonia with sepsis 2. Acute chronic obstructive pulmonary disease exacerbation. 3. Atrial fibrillation flutter with rapid ventricular response. 4. Acute chronic obstructive pulmonary disease exacerbation. 5. Leukocytosis. PLAN: He is being admitted to the medical unit, placed on telemetry, O2 per protocol, incentive spirometer. We will do pattern blood sugars with sliding scale insulin, place on diabetic diet. SCDs for DVT prophylaxis. We will place on Levaquin 750 mg IV q.24, Lovenox 1 mg/kg subcutaneous q.12, DuoNebs q.4 hours, Tylenol 650 p.o. q.4 hours p.r.n. We are going to check an echocardiogram in the a.m., update and confirm home medications and restart as appropriate. Further orders after seen by attending. Patient seen and examined by me face to face, all the laboratory, images, vitals were reviewed, patient presented to the emergency department with shortness of breath and subjective fever, dry cough, he has been on home O2 and he has been using it but is not controlling his symptoms, he has a history of COPD, A Fib, CHF, dyslipidemia, Parkinson, hypertension and Diabetes, he was noted to have a heart rate in the 130s, he is wheezing bilaterally and having A fib with RVR, we will need to transfer this patient to the unit, breathing treatment, O2, steroids, lovenox, and try to controlled his heart rate, which will be better if the COPD and pneumonia improve, X ray showed the possibility of pneumonia and since this patient heart rate is elevated, low grade temperature, tachypneic, he meets criteria for sepsis, we will add antibiotics ,probably Cardiology department will be on board, I agree with the FEEDER ASSOCIATE's assessment and plan, Cesar Jones MD. Dictated by LILLI Yeh for Cesar Lomax MD cc: LILLI Yeh MD Malcolm R. Hendricks, MD MTDD
[2018-12-27] MEDS: DUONEB (A & A) INH SCH ×2 (19:25→23:25)
[2018-12-27] MEDS: CARDIZEM PO SCH (21:48)
[2018-12-27] MEDS: HUMALOG SUBQ SCH (21:48)
[2018-12-27] MEDS: LOVENOX SUBQ SCH (21:48)
[2018-12-28] MEDS: DUONEB (A & A) INH SCH ×6 (03:30→23:25)
[2018-12-28] MEDS ORDERED: LOVENOX 1 MG/KG SUBQ SCH (05:00)
[2018-12-28] MEDS: CARDIZEM PO SCH ×3 (06:26→21:18)
[2018-12-28] MEDS: HUMALOG SUBQ SCH ×4 (06:46→21:19)
[2018-12-28] MEDS: LOVENOX SUBQ SCH ×2 (06:52→18:01)
[2018-12-28 07:16] LABS: URINE SOURCE CLEAN CATCH
[2018-12-28 07:19] LABS: BILIRUBIN URINE NEGATIVE (NEGATIVE); BLOOD URINE NEGATIVE (NEGATIVE); COLOR YELLOW; GLUCOSE URINE 1000 mg/dL (NEGATIVE); KETONE URINE NEGATIVE (NEGATIVE); LEUKOCYTES URINE NEGATIVE (NEGATIVE); NITRITE URINE NEGATIVE (NEGATIVE); PH URINE 5.5; PROTEIN URINE 100 mg/dL (NEGATIVE); SP GRAVITY URINE 1.021; TURBIDITY URINE CLEAR (CLEAR); UROBILINOGEN URINE NORMAL (NORMAL)
[2018-12-28 07:20] LABS: UR EPITHELIAL CELLS <10 /HPF (<10); URINE BACTERIA NEGATIVE /HPF; URINE RBC <10 /HPF (<10); URINE WBC <10 /HPF (<10)
[2018-12-28 08:00] LABS: BASO# 0.01 X1000 (0.0-0.2); BASO% 0.1 % (0.0-0.8); HEMATOCRIT 35.1 % (42.0-52.0); HEMOGLOBIN 11.3 g/dL (14.0-18.0); IMM GRAN# 0.04 X1000 (0.0-0.04); IMM GRAN% 0.3 % (0.0-0.5); MCH 27.8 PG (27-31); MCHC 32.2 g/dL (33-37); MCV 86.2 FL (81-99); MONO% 3.2 % (1.7-9.3); MPV 12.2 FL (7.4-10.4); NEUT# 11.65 X1000 (1.4-6.5); NEUT% 92.4 % (42.2-75.2); PLT 123 X1000 (130-400); RBC 4.07 XMIL (4.7-6.1); RDW 13.7 % (11.5-14.5)
[2018-12-28 08:27] LABS: CALCIUM 8.9 mg/dL (8.8-10.2); CREATININE 1.4 mg/dL (0.7-1.2); POTASSIUM 4.1 mmol/L (3.5-5.1)
[2018-12-28 08:42] LABS: BANDS 2 % (0-1); LYMPHS 4 % (21-51); MONO 4 % (1-9); SEGS 90 % (42-75)
[2018-12-28] MEDS: ASPIRIN PO SCH (11:31)
[2018-12-28] MEDS: CYMBALTA PO SCH (11:32)
[2018-12-28] MEDS: FLOMAX PO SCH (11:32)
[2018-12-28] MEDS: ZYLOPRIM PO SCH (11:32)
--- NOTE | 2018-12-28 12:59 | PROGRESS NOTE ---
DATE: 12/28/2018 SUBJECTIVE: This patient is feeling better, he has been on home O2, he is still short of breath. He is still coughing up phlegm, yellowish-greenish. He has been having atrial fibrillation/flutter and as per the patient, this is not the first time, it has been happening before, but he has not been on blood thinners, so we put him on Lovenox twice a day. We will ask for an echocardiogram to evaluate his heart, probably he will need to see Cardiology as an outpatient or inpatient depending on the results. I will ask also for hemoglobin A1c, it looks like he is taking metformin just once a day. Blood sugar has been above 200 today. OBJECTIVE: Vital Signs: Temperature 98.9 degrees, pulse 79,respiratory rate 16, blood pressure 145/58, oxygen saturation 98 on 3 L of nasal cannula. HEENT: Head normocephalic. No trauma. PERRLA. Neck: Supple. No JVD. Central trachea. Chest: Decreased breath sounds globally with prolonged expiratory phase and faint expiratory wheezing and bilateral rhonchi, mostly on the right side. Abdomen: Soft, nontender, nondistended. No hepatosplenomegaly. Extremities: No clubbing, no cyanosis. Neurological: The patient is alert and oriented x3. No focal deficits. LABORATORY DATA: WBC 12.6, hemoglobin 11.3, hematocrit 35.1, platelets 123,000. Sodium 136, potassium 4.1, chloride 99, bicarbonate 23, BUN 32, creatinine 1.4, glucose 209, calcium 8.9. ASSESSMENT AND PLAN: 1. Bilateral pneumonia. Continue with antibiotics. WBC is trending down, he is not having any more fever or chills. Continue breathing treatment and oxygen supplementation, pulmonary toilet. 2. Acute on chronic obstructive pulmonary disease exacerbation. Continue breathing treatment, antibiotics, oxygen. Since he is responding to treatment, I will avoid for now steroids but I will continue to monitor. 3. Hypothyroidism. Continue with Synthroid. 4. Dyslipidemia. Continue with Lipitor. 5. Atrial fibrillation/flutter with rapid ventricular response. Upon admission. We have placed this patient on Cardizem p.o. and the rate normalized, he is feeling better. He has never been on anticoagulation before, even though he was told that he had atrial fibrillation before I think multiple times, at least 2. I have placed this patient on Lovenox twice a day. I am waiting for the echocardiogram result. Hopefully we can switch the treatment to p.o. and he will follow up with Cardiology as an outpatient or inpatient, depending on the results. In the meantime, continue with the same management. 6. Leukocytosis, likely secondary to pneumonia. WBC decreased from 19 to 12. Continue with antibiotics. 7. History of coronary artery disease status post coronary artery bypass grafting and also stent placement. Aware. Continue with aspirin, no chest pain. 8. Possible history of Parkinson's. Aware. 9. Type 2 diabetes. We will continue to monitor. I will ask for a hemoglobin A1c. It looks like he is using metformin at home only once a day. We will wait for the results. Continue with sliding scale insulin and pattern of blood sugar. cc: Cesar Lomax MD
[2018-12-28] MEDS: FLONASE NAS SCH (14:10)
[2018-12-28] MEDS: LEVAQUIN 750 MG in NS 150 ML IV SCH (17:55)
[2018-12-28] MEDS: LIPITOR PO SCH (21:18)
[2018-12-28] MEDS: SEROQUEL PO SCH (21:19)
[2018-12-29] MEDS: DUONEB (A & A) INH SCH ×6 (03:20→23:25)
[2018-12-29 05:01] LABS: ALLEN TEST YES; BE -1.2 mmoll (-3.0-3.0); BLOOD TYPE ARTERIAL; O2(CT) 13.8 mL/dL (15.0-23.0); O2HB 96.8 % (95.0-99.0); PCO2(98.6) 39 mmHg (35-45); PO2(98.6) 98 mmHg (60-100); SAMPLE BLOOD; SAO2 99.3 % (95.0-100.0); pH(98.6) 7.39 (7.35-7.45)
[2018-12-29 05:04] LABS: MODALITY CANNULA
[2018-12-29] MEDS: CARDIZEM PO SCH ×3 (06:14→20:04)
[2018-12-29] MEDS: LOVENOX SUBQ SCH ×2 (06:14→18:03)
[2018-12-29] MEDS: HUMALOG SUBQ SCH ×4 (06:15→20:04)
[2018-12-29] MEDS: SYNTHROID PO SCH (06:20)
[2018-12-29 07:25] LABS: EOS# 0.01 X1000 (0.0-0.7); EOS% 0.1 % (0.0-10.0); HEMATOCRIT 32.7 % (42.0-52.0); HEMOGLOBIN 10.4 g/dL (14.0-18.0); IMM GRAN# 0.03 X1000 (0.0-0.04); IMM GRAN% 0.2 % (0.0-0.5); LYMPH# 0.53 X1000 (1.2-3.4); LYMPH% 3.9 % (20.5-51.1); MCH 27.3 PG (27-31); MCHC 31.8 g/dL (33-37); MCV 85.8 FL (81-99); MONO# 0.81 X1000 (0.11-0.59); MPV 11.9 FL (7.4-10.4); NEUT# 12.17 X1000 (1.4-6.5); NEUT% 89.8 % (42.2-75.2); PLT 142 X1000 (130-400); RBC 3.81 XMIL (4.7-6.1); RDW 13.9 % (11.5-14.5); WBC 13.55 X1000 (4.8-10.8)
[2018-12-29 07:48] LABS: AGAP 15; ALB/GLOB RATIO 1.3; ALBUMIN 3.7 g/dL (3.5-5.0); ALKALINE PHOSPHATASE 80 U/L (32-122); BUN 39 mg/dL (8-22); CALCIUM 9.4 mg/dL (8.8-10.2); CHLORIDE 103 mmol/L (98-107); CHOLESTEROL 114 mg/dL (0-200); COSMO 290; CREATININE 1.6 mg/dL (0.7-1.2); ESTIMATED GFR 43; GLUCOSE 160 mg/dL (70-104); GOT 12 U/L (10-34); GPT 6 U/L (10-44); HDL 48 mg/dL (35-55); LDL 48 mg/dL; MAGNESIUM 2.2 mg/dL (1.5-2.7); POTASSIUM 4.3 mmol/L (3.5-5.1); SODIUM 139 mmol/L (136-145); TCO2 21 mmol/L (25-35); TOTAL PROTEIN 6.5 g/dL (6.3-8.3); TRIGLYCERIDES 89 mg/dL (39-160); VLDL 18 mg/dL
[2018-12-29 07:58] LABS: BANDS 3 % (0-1); LYMPHS 3 % (21-51); MONO 5 % (1-9); SEGS 89 % (42-75)
[2018-12-29 08:11] LABS: HEMOGLOBIN A1C 5.3 % (4.8-6.0)
--- NOTE | 2018-12-29 08:20 | Diag Imaging Result Doc PS360 ---
EXAM: CHEST-PORTABLE INDICATION: dyspnea TECHNIQUE: One view COMPARISON: 12/27/2018 FINDINGS: Bilateral mild infiltrates at the mid lung zones bilaterally are again noted. There is questionable slight improvement on the right. No new consolidation is identified. Cardiac silhouette is stable. IMPRESSION: Bilateral small midlung zone consolidations with possible slight improvement on the right. Electronically signed by Woo Cervantes 12/29/2018 8:17 AM
[2018-12-29] MEDS: NS 1,000 ML IV SCH ×2 (09:22→21:50)
[2018-12-29] MEDS: ASPIRIN PO SCH (09:22)
[2018-12-29] MEDS: ZYLOPRIM PO SCH (09:22)
[2018-12-29] MEDS: FLONASE NAS SCH (09:22)
[2018-12-29] MEDS: CYMBALTA PO SCH (09:22)
[2018-12-29] MEDS: FLOMAX PO SCH (09:22)
--- NOTE | 2018-12-29 11:54 | PROGRESS NOTE ---
DATE: 12/29/2018 INTERVAL HISTORY: The patient's dyspnea continues to improve. Still some minimally productive cough. Saturating well on home 2 L of oxygen. No acute events overnight. No new complaints. REVIEW OF SYSTEMS: Twelve point review of systems negative except as per interval history. LABS: WBC 13.5, hemoglobin 10.4, hematocrit 32.7, platelets 142,000. ABG with pH 7.39, pCO2 39, PO2 98, O2 saturation 99 on 2 L by nasal cannula. Sodium 139, potassium 4.3, BUN 39, creatinine 1.6, glucose 159. IMAGING: Chest x-ray, bilateral mild infiltrates in the mid lung zones bilaterally with slight improvement. VITALS: T-max 100.7, pulse 92, respirations 16, blood pressure 130/58, O2 saturation 97% on 2 L by nasal cannula. PHYSICAL EXAMINATION: General: No acute distress. Vitals: As above. HEENT: Normocephalic, atraumatic. Moist mucous membranes. No cervical adenopathy. Cardiovascular: Regular rate and rhythm. No murmurs, rubs, or gallops noted. Pulmonary: Moderately decreased breath sounds throughout. Very faint end-expiratory wheeze noted. Abdomen: Soft, nontender, nondistended. Bowel sounds positive. Extremities: Peripheral pulses intact. No clubbing or cyanosis. Neurologic: Cranial nerves grossly intact. No focal deficits identified. Psychiatric: Normal mood and affect. Awake, alert, oriented x3. Skin: No new rashes or lesions identified. ASSESSMENT AND PLAN: 1. Bilateral pneumonia. Patient improving rapidly with antibiotics. White count improved from admission. One low-grade fever just after admission but none since. Continue antibiotics and monitor. If he continues to improve, then he may be able to be discharged on oral antibiotics tomorrow. 2. Chronic obstructive pulmonary disease exacerbation. Symptoms likely primarily due to pneumonia but some small component of chronic obstructive pulmonary disease exacerbation. No significant CO2 retention. Doing well with DuoNebs and antibiotics. Holding on steroids. 3. Hypothyroidism. Continue home Synthroid. 4. Hyperlipidemia. Continue Lipitor. 5. Atrial fibrillation/flutter with rapid ventricular response on admission. Patient is on oral Cardizem with normal rate since. Occasionally goes back into normal sinus rhythm. He is currently on Lovenox. Will discuss oral anticoagulant prior to discharge. 6. Coronary artery disease. Continue aspirin. No chest pain currently. 7. Diabetes mellitus. Patient's A1c is 5.3, so excellent control on just metformin at home. May actually be diet controlled. Continue to monitor glucoses.
--- NOTE | 2018-12-29 13:10 | ECHO REPORT ---
ORDER DATE: 12/28/2018 MEASUREMENTS: Left ventricular internal diameter in diastole 4.2, left ventricular internal diameter in systole 2.4, septal thickness 0.9, posterior wall thickness 0.8, aortic root 3.5. SUMMARY: 1. Technically difficult study due to limited acoustic window quality. Intravenous echocontrast agent Optison was utilized to enhance endocardial definition. 2. Aortic valve demonstrates mild sclerosis but appears to open adequately on 2-dimensional images. Peak gradient across the aortic valve is 17 mmHg. There is mild thickening of the mitral valve leaflets with adequate mitral valve opening. Tricuspid valve and pulmonic valve are without evidence of structural abnormality with mild tricuspid regurgitation. The estimated systolic PA pressure by Doppler is 45 mmHg, suggesting mild pulmonary hypertension. The aortic root is normal in size. 3. Normal left ventricular dimensions demonstrated. The estimated left ventricular ejection fraction appears to be at least 70%. No regional wall motion abnormalities are evident. Left atrium is mildly enlarged. The right atrium and the right ventricle are normal in size with normal right ventricular systolic function. 4. No pericardial effusion. 5. Appearance of inferior vena cava suggests normal central venous pressure. cc: MD Marielena Zaidi CRNP
[2018-12-29] MEDS: LEVAQUIN 750 MG in NS 150 ML IV SCH (17:46)
[2018-12-29] MEDS: LIPITOR PO SCH (20:04)
[2018-12-29] MEDS: SEROQUEL PO SCH (20:04)
[2018-12-30] MEDS: DUONEB (A & A) INH SCH ×3 (03:25→11:16)
[2018-12-30] MEDS: LOVENOX SUBQ SCH (06:07)
[2018-12-30] MEDS: SYNTHROID PO SCH (06:08)
[2018-12-30] MEDS: HUMALOG SUBQ SCH (06:08)
[2018-12-30] MEDS: CARDIZEM PO SCH (06:08)
--- NOTE | 2018-12-30 07:28 | EKG Report ---
Test Performed on : 12/28/2018 5:01:39 PM Test Reason : A Fib Blood Pressure : / mmHG Vent. Rate : 093 BPM Atrial Rate : 293 BPM P-R Int : 000 ms QRS Dur : 104 ms QT Int : 366 ms P-R-T Axes : 000 059 -63 degrees QTc Int : 455 ms Atrial flutter. with variable AV block. Possible Inferior infarct , age undetermined Abnormal ECG When compared with ECG of 27-DEC-2018 15:07, (Unconfirmed) T wave inversion more evident in Inferior leads Nonspecific T wave abnormality, improved in Lateral leads Confirmed by Roc BISHOP, Mukul Bunn ([id number]) on 12/30/2018 12:48:41 PM
--- NOTE | 2018-12-30 07:46 | EKG Report ---
Test Performed on : 12/27/2018 3:07:50 PM Test Reason : SOB Blood Pressure : / mmHG Vent. Rate : 116 BPM Atrial Rate : 308 BPM P-R Int : 000 ms QRS Dur : 090 ms QT Int : 314 ms P-R-T Axes : 000 068 -79 degrees QTc Int : 436 ms Atrial flutter. with variable AV block. Nonspecific ST and T wave abnormality Abnormal ECG When compared with ECG of 24-SEP-2017 18:34, Previous ECG has undetermined rhythm, needs review Non-specific change in ST segment in Inferior leads T wave inversion now evident in Inferior leads Nonspecific T wave abnormality, worse in Lateral leads Unconfirmed Result
[2018-12-30 08:19] VITALS: BP 148/66
[2018-12-30 08:34] LABS: BASO# 0.01 X1000 (0.0-0.2); BASO% 0.1 % (0.0-0.8); EOS# 0.16 X1000 (0.0-0.7); EOS% 1.9 % (0.0-10.0); HEMATOCRIT 32.3 % (42.0-52.0); HEMOGLOBIN 10.1 g/dL (14.0-18.0); IMM GRAN# 0.03 X1000 (0.0-0.04); IMM GRAN% 0.4 % (0.0-0.5); LYMPH# 0.88 X1000 (1.2-3.4); LYMPH% 10.5 % (20.5-51.1); MCH 27.6 PG (27-31); MCHC 31.3 g/dL (33-37); MCV 88.3 FL (81-99); MONO# 0.85 X1000 (0.11-0.59); MONO% 10.1 % (1.7-9.3); MPV 11.6 FL (7.4-10.4); NEUT# 6.45 X1000 (1.4-6.5); PLT 123 X1000 (130-400); RBC 3.66 XMIL (4.7-6.1); RDW 14.2 % (11.5-14.5); WBC 8.38 X1000 (4.8-10.8)
[2018-12-30 08:50] LABS: CALCIUM 8.5 mg/dL (8.8-10.2); CREATININE 1.4 mg/dL (0.7-1.2); POTASSIUM 4.3 mmol/L (3.5-5.1)
[2018-12-30] MEDS: FLONASE NAS SCH (09:31)
[2018-12-30] MEDS: ZYLOPRIM PO SCH (09:33)
[2018-12-30] MEDS: CYMBALTA PO SCH (09:33)
[2018-12-30] MEDS: ASPIRIN PO SCH (09:33)
[2018-12-30] MEDS: FLOMAX PO SCH (09:33)
--- NOTE | 2018-12-30 12:49 | DISCHARGE SUMMARY ---
ADMISSION DATE: 12/27/2018 DISCHARGE DATE: 12/30/2018 ADMISSION DIAGNOSES: 1. Bilateral pneumonia. 2. Chronic obstructive pulmonary disease exacerbation. 3. Atrial fibrillation with rapid ventricular response. 4. Hyperlipidemia. 5. Benign prostatic hypertrophy. 6. Diabetes mellitus type 2. DISCHARGE DIAGNOSES: 1. Bilateral pneumonia. 2. Chronic obstructive pulmonary disease exacerbation. 3. Atrial fibrillation with rapid ventricular response. 4. Hyperlipidemia. 5. Benign prostatic hypertrophy. 6. Diabetes mellitus type 2. CONSULTATIONS: None. DIAGNOSTIC PROCEDURES AND FINDINGS: EKG 12/27/2018 atrial flutter with variable block. Chest x- ray 12/27/2018 COPD, emphysematous changes, bilateral interstitial scarring. Echocardiogram 12/28/2018 systolic PA pressure 45 mmHg suggesting mild pulmonary hypertension, EF 70%, no regional wall motion abnormalities. Chest x-ray 12/29/2018 bilateral small mid lung zone consolidations with possible slight improvement on the right. HOSPITAL COURSE: The patient is a 68-year-old male who presented to [facility] ER with subjective fever, cough, shortness of breath with no improvement with the use of home oxygen. When he got to the ER, he was noted to be in atrial flutter with a variable block. He did have a low-grade fever. Chest x-ray was consistent with bilateral lower lobe infiltrates. He was admitted initially with a Cardizem drip and we started him on Lovenox, as well as Levaquin. He was transitioned over to p.o. Cardizem and his rhythm did go in and out of atrial fibrillation/flutter throughout his admission. Symptoms of dyspnea improved rapidly with antibiotics as well as breathing treatment and aggressive pulmonary toilet. Overall, the patient has reached maximum benefit from inpatient hospitalization and is now stable for discharge home. DISCHARGE MEDICATIONS: 1. Allopurinol 100 mg p.o. daily. 2. Aspirin 81 mg daily. 3. Lipitor 40 mg p.o. at bedtime. 4. Cymbalta 30 mg p.o. q.a.m. 5. Fluticasone nasal spray daily as directed. 6. Synthroid 50 mg p.o. q.a.m. 7. Seroquel 50 mg p.o. at bedtime. 8. Flomax 0.4 mg daily. 9. Alfuzosin 10 mg p.o. at bedtime. 10. Norvasc 2.5 mg p.o. daily. 11.Eliquis 5 mg p.o. b.i.d. 12.Keflex 500 mg p.o. b.i.d. 13.Cardizem 60 mg p.o. q.8 hours. 14.Ezetimibe 10 mg p.o. daily. 15.Iron sulfate 325 mg p.o. t.i.d. 16.Finasteride 5 mg p.o. daily. 17.Breo Ellipta 200/25 mcg inhaled as directed. 18.Combivent inhaler 2 puffs as needed. 19.Levaquin 750 mg p.o. daily. 20.Metformin 500 mg daily. 21.Venlafaxine 37.5 mg p.o. daily. DISCHARGE DIET: Diabetic heart-healthy. DISCHARGE ACTIVITY: Resume activity as tolerated. DISPOSITION AND OTHER DISCHARGE INSTRUCTIONS: The patient was discharged home to self-care. He is to follow up with Dr. Sharma in the next week to 2 weeks and Cardiology if felt necessary by his PCP. He is to continue all medications as directed, return to the ER or call 911 for worsening complaints or concerns. All questions were answered. DISCHARGE TIME: Greater than 35 minutes. Dictated by LILLI Ayala for Stewart Harry MD cc: LILLI Ayala MD Agree with above. the following is my own, face to face assessment. respiratory status now essentially baseline. pneumonia largely resolved. satting well on 2L O2 which he is on at home. afib remains controlled. stable for discharge home to follow up with pcp. ADITYAD
== END 2018-12-30 13:08 | disposition home or self-care (01) | DRG 871 ==
LOC: ED 14:57 → SUATTDRO 18:02 → 3N 18:02
PROVIDERS: ATTEND Internal Medicine
CPT/HCPCS: 71010; 71045; 80048; 80053; 80061; 81001; 82550; 82805; 82948; 83036; 83605; 83735; 83880; 84484; 85025; 85610; 85730; 87040; 93005; 93010; 93306; 94640; 94761; 94799; 96365; 96366; 96375; 99285; 99291; A9270; C8929; J1650; J1815; J1885; J1956; J2930; J7030; Q9957; XXXXX